=== PATIENT | female | born 2000 | race Caucasian/White ===

== ENCOUNTER 2024-01-04 07:37 | Inpatient (IN) ==
[2024-01-04] MEDS ORDERED: LIDOCAINE 1% LOCAL 20 ML VIAL INFIL PRN (07:43)
--- NOTE | 2024-01-04 07:57 | History & Physical Report ---
Date of Service January 04, 2024 Assessment & Plan (1) Encounter for induction of labor: Plan 23 y/o female currently at 39w1d with an MITZI 01/10/24 as determined by LMP, who is here for IOL. Pitocin AROM as indicated Monitor heart tracing, category 1 Admission and Anticipated Discharge Date Admission Date: January 04, 2024 History of Present Illness Primary Care Provider: NO PCP 23 y/o female currently at 39w1d with an MITZI 01/10/24 as determined by LMP, who is here for IOL. complicated by: Obesity (BMI 40 and higher @ beginning of ) Rh Negative *Rhogam at 28wks -Rhogam given 10/29/2023 - SP Low dose aspirin *Nulliparity and increase BMI GDM on insulin Had regular appointments with OB (+)Contractions (+) movement (-)Fluid loss (-)Vaginal bleeding External FHT and external uterine monitors used: Category 1 tracing OB Labs: Blood Type O Negative 06/01/23 Antibody Screen NEGATIVE 10/29/23 Hemoglobin 11.5 g/dl (12.0-16.0) L 12/17/23 Hematocrit 35.2 % (37.0-47.0) L 12/17/23 Mean Corpuscular Volume 82.4 fL (80.0-100.0) 12/17/23 Platelet Count 194 K/uL (130-400) 12/17/23 Rubella IgG Antibody Immune (Immune) 06/01/23 Rapid Plasma Reagin Nonreactive (Nonreactive) 06/01/23 Hepatitis B Surface Antigen. NON-REACTIVE (NON-REACTIVE) 06/01/23 Hepatitis C Antibody (EIA) NON-REACTIVE (NON-REACTIVE) 06/01/23 HIV (1&2) Ag and Ab Confirmation NON-REACTIVE (NON-REACTIVE) 06/01/23 Glucose 1 Hour 50 gm Load 137 mg/dl (70-130) H 07/27/23 OB Optional Labs: Chlamydia trachomatis RNA Not Detected (NotDetected) 06/01/23 Neisseria gonorrhoeae RNA Not Detected (NotDetected) 06/01/23 Thyroid Stimulating Hormone (TSH) < 0.010 uIu/ml (0.300-4.500) L 12/13/23 Labs Reviewed: Declines carrier screening--mln cfdna-low risk--mln Allergies Allergy/AdvReac Type Severity Reaction Status Date / Time sulfa Allergy Severe Anaphylaxis Uncoded 01/04/24 07:57 Home Medications Medication Instructions Recorded Confirmed Type 21-iron fu-folic acid 1 tab PO DAILY 05/28/23 01/04/24 History [ Complete] acetone (urine) test (Ketone Urine #50 ea 08/09/23 01/03/24 Rx Test strips) blood-glucose meter (OneTouch #1 ea 08/09/23 01/03/24 Rx Verio Reflect Meter) lancets 33 gauge (OneTouch Delica #150 ea 08/09/23 01/03/24 Rx Plus Lancet) pen needle, diabetic 32 gauge x #100 ea 10/10/23 01/03/24 Rx 5/32" (BD Ultra-Fine Yareli Pen Needle) blood sugar diagnostic (OneTouch #150 ea 11/23/23 01/03/24 Rx Verio test strips) aspirin 81 mg chewable tablet 81 mg PO DAILY 12/17/23 01/04/24 History insulin NPH isoph U-100 human 100 45 unit subcut QPM 12/17/23 01/04/24 History unit/mL (3 mL) subcutaneous pen (Humulin N NPH U-100 Insulin KwikPen) levothyroxine 100 mcg tablet 100 mcg PO DAILY #30 tabs 12/24/23 01/04/24 Rx Patient History Medical History History of positive PPD Vascular malformation Varicella vaccination Surgical History S/P sclerotherapy of varicose veins Family History Denies family history of Ovarian cancer Breast cancer Colorectal cancer Social History (Updated 10/09/23 @ 12:00 by Jayna Funez LPN) Smoking Status: Never smoker Do You Dip or Chew Tobacco: No; Hx Alcohol Use: No Hx Substance Use: No Preferred Language: Thai Communication Ability: Effective Technology Lead Required: No Beliefs That Will Affect Care: None marital status: marital status details: brigido Huertas (24) [phone] Current Living Situation: Spouse Current Living Situation Comment: Patient lives with fob and dogs current occupational status: employed current occupation: [employer] Feels Safe at Home: Yes Safety Concerns: Feels Safe At This Time Diet: regular Dental Care, Regularly: No Seatbelt Use: always 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 No acute distress Cardiac: Regular rate and rhythm, no murmurs appreciated Respiratory: Lungs clear to auscultation bilaterally, No increased work of breathing Abdominal: Soft, non-tender, non-distended. Bowel sounds present. Gravid uterus. Extremities: No lower extremity edema, calves non-tender bilaterally FHT: Category 1, baseline rate 140, moderate variablility Genitourinary: OB Exam Abdomen: + vertex and + estimated weight (7-8 pounds); no irregular contractions Manual OB Exam: + cervical dilation 2 cm, + cervical effacement 70% and + station -2 OB Exam Monitor Tracing: + external FHT monitor used, + external uterine monitor used, + category I and + normal FHT variability cervical balloon placed under direct visualization. 40cc sterile water were instilled into the balloon. the catheter was then placed on traction and secured to her right leg. patient tolerated procedure well. Results & Data Vital Signs (Past 12 Hours) Vital Signs Pulse BP 01/04/24 07:47 110 H 133/95 Supervising Physician Co-Signing Physician Notes Resident Physician Supervision Note: I interviewed and examined the patient. Discussed with Dr. Higgins and agree with findings and plan as documented in the note. Any exceptions or clarifications are listed here: [None] Documented By: Jacque Zuleta MD, FACOG Resident Activity Tracking Resident Involvement: Resident Care Provided Care Provided: OB Delivery
[2024-01-04 08:15] LABS: Hematocrit (blood only) 35.7 % (37.0-47.0); Hemoglobin 12.1 g/dl (12.0-16.0); Mean Corpuscular Hemoglobin 27.3 pg (25.0-34.0); Mean Corpuscular Hgb Conc 33.9 g/dL (32.0-36.0); Mean Corpuscular Volume 80.4 fL (80.0-100.0); Mean Platelet Volume 10.7 fL (9.4-12.4); Platelet Count 171 K/uL (130-400); RDW Coefficient of Variation 15.8 % (11.5-14.5); RDW Standard Deviation 46.3 fL (36.4-46.3); Red Blood Count 4.44 M/uL (4.20-5.40); White Blood Count 12.02 K/ul (4.8-10.8)
[2024-01-04] MEDS: LACTATED RINGER'S 1,000 ML IV PRN (09:31)
[2024-01-04] MEDS: OXYTOCIN 30 UNITS/NSS 30 UNITS/500 ML BAG IV PRN (09:35)
[2024-01-04] MEDS ORDERED: DEXTROSE 50% 50 ML SYRINGE IV PRN (09:51)
[2024-01-04] MEDS ORDERED: SODIUM CHLORIDE 0.9% 1,000 ML IV PRN (09:51)
[2024-01-04] MEDS: BUTORPHANOL TARTRATE 2 MG/ML VIAL IV PRN (10:11)
[2024-01-04] MEDS: DEXTROSE 5% 1,000 ML IV PRN (11:58)
[2024-01-04] MEDS: INSULIN REGULAR 250 UNITS in SODIUM CHLORIDE 0.9% 247.5 ML IV PRN (11:59)
[2024-01-04] MEDS: BUPIVACAINE 0.25% PF 30 ML VIAL ONE (14:25)
[2024-01-04] MEDS: LIDOCAINE 2%/EPINEPHRINE 1:200,000 20 ML PF ONE (14:26)
[2024-01-04] MEDS: fentANYL 2 MCG/ML BUPIVacaine 0.125%-NSS 100ML BAG ONE (14:27)
[2024-01-04] MEDS: SODIUM CHLORIDE 0.9% PF INJ 10 ML VIAL ONE (14:33)
[2024-01-04] MEDS: fentaNYL citrate PF 100 MCG/2 ML VIAL ONE (14:33)
--- NOTE | 2024-01-04 14:39 | Anesthesiology Consultation ---
Date of Service January 04, 2024 Assessment & Plan Chart Review Chart Review: Acceptable Risk for Labor Epidural Consults Requested none History Height/Weight Height: 5 ft 8 in Weight: 141.974 kg Allergies Allergy/AdvReac Type Severity Reaction Status Date / Time sulfa Allergy Severe Anaphylaxis Uncoded 01/04/24 07:57 Medications Home Medications Medication Instructions Recorded Confirmed Last Taken 21-iron fu-folic acid 1 tab PO DAILY 05/28/23 01/04/24 01/03/24 21:00 [ Complete] acetone (urine) test (Ketone Urine #50 ea 08/09/23 01/03/24 Unknown Test strips) blood-glucose meter (OneTouch #1 ea 08/09/23 01/03/24 Unknown Verio Reflect Meter) lancets 33 gauge (OneTouch Delica #150 ea 08/09/23 01/03/24 Unknown Plus Lancet) pen needle, diabetic 32 gauge x #100 ea 10/10/23 01/03/24 Unknown 32" (BD Ultra-Fine Yareli Pen Needle) blood sugar diagnostic (OneTouch #150 ea 11/23/23 01/03/24 Unknown Verio test strips) aspirin 81 mg chewable tablet 81 mg PO DAILY 12/17/23 01/04/24 01/03/24 21:00 insulin NPH isoph U-100 human 100 45 unit subcut QPM 12/17/23 01/04/24 01/03/24 21:00 unit/mL (3 mL) subcutaneous pen (Humulin N NPH U-100 Insulin KwikPen) levothyroxine 100 mcg tablet 100 mcg PO DAILY #30 tabs 12/24/23 01/04/24 01/03/24 07:00 Active Medications Generic Name Dose Route Start Last Admin Trade Name Freq PRN Reason Stop Dose Admin Butorphanol Tartrate 1 mg 01/04/24 09:48 01/04/24 12:33 Butorphanol Tartrate 2 Mg/Ml Vial IV 02/03/24 09:47 1 mg Q2H PRN Administration Pain Oxytocin 30 units in 500 mls @ 10 mls/hr 01/04/24 07:43 01/04/24 13:00 Pitocin 30 Units/Nss IV 01/06/24 07:42 0.6 units/hr .Q24H PRN 10 mls/hr Labor Induction/Augmentation Titration Protocol 0.6 UNITS/HR Lactated Ringer's 1,000 mls @ 125 mls/hr 01/04/24 07:43 01/04/24 14:00 Lr IV 01/06/24 07:42 25 mls/hr .Q8H PRN Infusion L&D Protocol Protocol Dextrose 1,000 mls @ 100 mls/hr 01/04/24 09:51 01/04/24 14:00 D5w IV 02/03/24 09:50 100 mls/hr .Q10H PRN Infusion BSG 180 or below Protocol Insulin Human Regular 250 250 mls @ 0 mls/hr 01/04/24 09:51 01/04/24 14:00 units/ Sodium Chloride IV 02/03/24 09:50 0.5 units/hr .Q0M PRN 0.5 mls/hr BSG 80mg/dL or ABOVE Titration Protocol Per Protocol Past Medical History Medical History History of positive PPD Vascular malformation Varicella vaccination Past Family History Family History Denies family history of Ovarian cancer Breast cancer Colorectal cancer Past Surgical History Surgical History S/P sclerotherapy of varicose veins Social History Smoking Status: Never smoker Do You Dip or Chew Tobacco: No Hx Alcohol Use: No Hx Substance Use: No substance use type: does not use Physical Exam Vital Signs Last Vital Signs Temp 36.8 C 01/04/24 14:24 Pulse 86 01/04/24 14:36 Resp 16 01/04/24 14:24 BP 131/75 01/04/24 14:36 Pulse Ox 97 01/04/24 14:33 Testing Laboratory Results 01/04/24 07:50 01/04/24 01/04/24 01/04/24 13:53 12:56 11:16 POC Glucose 91 94 89 01/04/24 08:57 POC Glucose 110 H
[2024-01-04] MEDS ORDERED: fentaNYL citrate PF 100 MCG/2 ML VIAL EPI PRN (14:41)
[2024-01-04] MEDS ORDERED: BUPIVACAINE 0.25% PF 30 ML VIAL EPI PRN (14:41)
[2024-01-04] MEDS ORDERED: ROPIVACAINE 0.5% PF 5 MG/ML 20 ML VIAL EPI PRN (14:41)
[2024-01-04] MEDS ORDERED: diphenhydrAMINE 50 MG/ML VIAL IV PRN (14:41)
[2024-01-04] MEDS ORDERED: NALOXONE HCL 0.4 MG/1 ML VIAL/CARP IV PRN (14:41)
[2024-01-04] MEDS ORDERED: NALBUPHINE HCL 5 MG in SYRINGE 0 ML IV PRN (14:41)
[2024-01-04] MEDS ORDERED: NALOXONE HCL 1 MG in SODIUM CHLORIDE 0.9% 1,000 ML IV PRN (14:41)
[2024-01-04] MEDS ORDERED: SODIUM CHLORIDE 0.9% PF INJ 10 ML VIAL EPI PRN (14:41)
[2024-01-04] MEDS ORDERED: LIDOCAINE 2% MPF LOCAL 5 ML VIAL EPI PRN (14:41)
[2024-01-04] MEDS ORDERED: ePHEDrine sulfate 50 MG/ML AMP IV PRN (14:41)
[2024-01-04] MEDS: BUPIVACAINE 0.25% PF 30 ML VIAL EPI STA (14:52)
[2024-01-04] MEDS: fentaNYL citrate PF 100 MCG/2 ML VIAL EPI STA (14:53)
[2024-01-04] MEDS: SODIUM CHLORIDE 0.9% PF INJ 10 ML VIAL EPI STA (14:54)
[2024-01-04] MEDS: LIDOCAINE 2%/EPINEPHRINE 1:200,000 20 ML PF EPI STA (14:54)
[2024-01-04] MEDS ORDERED: INSULIN REGULAR 250 UNITS in SODIUM CHLORIDE 0.9% 247.5 ML IV PRN (15:10)
--- NOTE | 2024-01-04 19:31 | Labor Progress Brief Note ---
Date of Service January 04, 2024 Known large baby with diabetes on insulin patient is being induced she is gone from 2 cm to 4 may be slightly more than 4 there is some molding palpated -2 station contractions every 2 minutes heart rate is reassuring I discussed with the patient there is some concern for a large fetus I discussed at length how we could continue to induce labor versus risks of a prolonged labor induction discussed the options of discussed what is involved with the we will check her again in 1 hour and make decisions patient seems comfortable with the approach of either or continuing labor she is aware the baby is big section. The patient was counseled to the nature of the procedure including alternatives such as labor. Risks were discussed including bleeding infection injury to bowel bladder ureter vessels and even baby. Deep Vein thrombosis, pulmonary embolus discussed. Breakdown of incision reviewed. Deep vein thrombosis pulmonary embolus hernia and failure of the incision to heal were discussed Patient verbalized understanding of this and was given ample time to ask questions Assessment & Plan Admission and Anticipated Discharge Date Admission Date: January 04, 2024 Results & Data Vital Signs (Past 12 Hours) Vital Signs Temp Pulse Resp BP Pulse Ox 01/04/24 19:23 100 01/04/24 19:23 73 01/04/24 19:23 72 142/84 H 01/04/24 19:18 63 100 01/04/24 19:13 68 100 01/04/24 19:08 72 100 01/04/24 19:07 72 133/66 01/04/24 19:03 83 100 01/04/24 18:58 66 100 01/04/24 18:53 73 100 01/04/24 18:52 68 146/85 H 01/04/24 18:48 67 100 01/04/24 18:43 67 100 01/04/24 18:38 67 100 01/04/24 18:37 68 141/89 H 01/04/24 18:33 70 100 01/04/24 18:28 82 100 01/04/24 18:23 71 100 01/04/24 18:22 66 140/83 01/04/24 18:18 68 100 01/04/24 18:13 61 100 01/04/24 18:08 98.1 F 64 16 100 01/04/24 18:07 76 133/80 01/04/24 18:03 64 99 01/04/24 17:58 65 100 01/04/24 17:53 100 01/04/24 17:53 70 01/04/24 17:53 68 136/78 01/04/24 17:48 62 100 01/04/24 17:43 69 100 01/04/24 17:38 73 100 01/04/24 17:37 62 136/78 01/04/24 17:33 65 100 01/04/24 17:31 69 90 01/04/24 17:28 57 L 100 01/04/24 17:23 64 100 01/04/24 17:22 66 125/76 01/04/24 17:18 63 100 01/04/24 17:13 58 L 100 01/04/24 17:08 65 131/75 100 01/04/24 17:05 16 01/04/24 17:05 97.3 F L 16 01/04/24 17:03 62 100 01/04/24 16:58 63 100 01/04/24 16:53 60 100 01/04/24 16:52 57 L 138/74 01/04/24 16:48 59 L 100 01/04/24 16:43 63 100 01/04/24 16:38 100 01/04/24 16:38 65 01/04/24 16:38 61 133/74 01/04/24 16:33 62 100 01/04/24 16:28 65 100 01/04/24 16:23 65 99 01/04/24 16:22 63 142/68 H 01/04/24 16:18 59 L 100 01/04/24 16:13 69 100 01/04/24 16:08 66 100 01/04/24 16:07 73 128/68 01/04/24 16:05 16 01/04/24 16:05 97.7 F 16 01/04/24 16:03 66 100 01/04/24 15:58 84 99 01/04/24 15:53 68 100 01/04/24 15:52 63 129/70 01/04/24 15:48 68 100 01/04/24 15:43 80 99 01/04/24 15:38 100 01/04/24 15:38 66 01/04/24 15:38 64 129/70 01/04/24 15:33 71 98 01/04/24 15:28 74 100 01/04/24 15:23 69 127/72 100 01/04/24 15:18 69 99 01/04/24 15:13 69 100 01/04/24 15:08 70 99 01/04/24 15:07 60 128/69 01/04/24 15:03 73 99 01/04/24 14:58 66 100 01/04/24 14:53 71 99 01/04/24 14:52 70 126/68 01/04/24 14:48 75 99 01/04/24 14:43 84 98 01/04/24 14:38 75 96 01/04/24 14:36 86 131/75 01/04/24 14:34 80 132/75 01/04/24 14:33 79 97 01/04/24 14:32 85 126/79 01/04/24 14:30 74 125/72 01/04/24 14:29 80 93/51 L 01/04/24 14:28 67 91/48 L 98 01/04/24 14:25 76 108/55 L 01/04/24 14:24 16 01/04/24 14:24 98.2 F 86 16 125/70 01/04/24 14:23 90 100 01/04/24 14:22 93 H 142/89 H 01/04/24 14:18 82 98 01/04/24 14:14 81 90 01/04/24 14:13 81 100 01/04/24 14:08 84 100 01/04/24 14:03 86 100 01/04/24 13:58 72 100 01/04/24 13:53 75 100 01/04/24 13:48 74 100 01/04/24 13:43 78 100 01/04/24 13:38 72 100 01/04/24 13:24 77 100 01/04/24 13:19 69 100 01/04/24 13:14 73 141/92 H 99 01/04/24 13:09 71 95 01/04/24 13:04 73 98 01/04/24 12:59 70 95 01/04/24 12:55 67 142/86 H 01/04/24 12:54 72 97 01/04/24 12:50 74 94 01/04/24 12:49 69 96 01/04/24 12:44 70 97 01/04/24 12:39 69 96 04/05/24 12:38 72 94 01/04/24 12:34 68 100 01/04/24 12:29 75 100 01/04/24 12:25 67 144/93 H 01/04/24 12:24 75 100 01/04/24 12:19 64 100 01/04/24 12:16 69 167/95 H 01/04/24 12:14 71 100 01/04/24 12:09 69 100 01/04/24 12:04 72 99 01/04/24 11:59 71 100 01/04/24 11:54 71 99 01/04/24 11:49 66 100 01/04/24 11:44 69 100 01/04/24 11:39 66 100 01/04/24 11:34 69 100 01/04/24 11:29 70 100 01/04/24 11:24 67 100 01/04/24 11:19 67 100 01/04/24 11:14 67 99 01/04/24 11:11 65 144/90 H 01/04/24 11:09 71 100 01/04/24 11:04 72 99 01/04/24 10:59 73 99 01/04/24 10:54 77 98 01/04/24 10:49 73 97 01/04/24 10:44 67 94 01/04/24 10:43 71 93 01/04/24 10:39 70 95 01/04/24 10:36 73 93 01/04/24 10:34 76 94 05 10:31 79 93 05 10:29 82 95 05 10:25 75 94 05 10:24 76 96 05 10:19 83 95 01/04/24 10:18 85 93 01/04/24 10:14 76 99 05 10:13 79 139/91 05 09:37 89 142/79 H 01/04/24 08:33 93 H 139/74 [id number] 08:00 98.6 F 110 H 18 133/95 040524 07:47 98.6 F 110 H 18 133/95 Coding Level of Care Code None
[2024-01-04] MEDS ORDERED: SODIUM CHLORIDE 0.9% 250 ML IV PRN (20:01)
[2024-01-04] MEDS: ONDANSETRON INJ 2 MG/ML 2 ML VIAL IV PRN (21:28)
[2024-01-04] MEDS: fentANYL 2 MCG/ML BUPIVacaine 0.125%-NSS 100ML BAG EPI PRN (22:42)
[2024-01-05] MEDS: CALCIUM CARBONATE 500 MG CHEWABLE TAB PO PRN ×2 (00:23→23:23)
[2024-01-05] MEDS: OXYTOCIN 30 UNITS/NSS 30 UNITS/500 ML BAG IV PRN (05:59)
--- NOTE | 2024-01-05 06:00 | Delivery Summary ---
Supervising Physician Co-Signing Physician Notes Induction of labor at 39 weeks for gestational diabetes on insulin and suspected large for gestational age Pitocin and Duran and her cervix placed her contractions improved she received an epidural artificial rupture of membranes her cervix then did still out of 4 cm however after that it took off nicely and started dilating all the way to fully dilated she pushed approximately 2 hours delivered a baby in occiput anterior position. Once the head was delivered there was clear fluid no nuchal cord gentle traction on the baby with no excessive force easy delivery live vigorous female cord clamped and cut cord gases obtained cord blood obtained placenta removed with traction IV Pitocin started uterine tone good second-degree tear repaired with 3-0 Vicryl sponge and instrument counts correct quantitative blood loss was 180 mL Vaginal Delivery Summary Date of Service January 05, 2024 Vaginal Delivery Summary and 2nd Degree LAC [facility] Vaginal Delivery Charge Delivery Type Details: and 2nd Degree LAC
[2024-01-05] MEDS ORDERED: HYDROCORTISONE ACETATE 25 MG SUPP PR PRN (06:07)
[2024-01-05] MEDS ORDERED: BENZOCAINE 20% SPRY 85 APPLN/85 GM CAN EXT PRN (06:07)
[2024-01-05] MEDS ORDERED: OXYTOCIN 30 UNITS/NSS 30 UNITS/500 ML BAG IV PRN (06:07)
[2024-01-05] MEDS ORDERED: ACETAMINOPHEN 325 MG TAB PO PRN (06:07)
[2024-01-05] MEDS ORDERED: bisacodyL 10 MG SUPP PR PRN (06:07)
[2024-01-05] MEDS: ePHEDrine sulfate 50 MG/ML AMP ONE (06:28)
[2024-01-05] MEDS ORDERED: LEVOTHYROXINE SODIUM 100 MCG TABLET PO SCH (06:30)
[2024-01-05 07:08] LABS: Base Excess Cord Arterial Bld -3.3 mEq/L (-9-1.8); CO2 Cord Arterial Blood 40 mmHg (39.1-73.5); HCO3 Cord Arterial Blood 22 mmol/L (19.7-28.5); Oxygen Sat Cord Arterial Blood 70.6 % (<60); PO2 Cord Arterial Blood 37 mmHg (4.1-31.7); pH Cord Arterial Blood 7.35 (7.1-7.38)
[2024-01-05 07:09] LABS: Base Excess Cord Venous Blood -4.8 mEq/L (-7.7-1.9); Cord Venous Blood HCO3 23 mmol/L (18.4-26.8); Cord Venous Blood PCO2 53 mmHg (30.4-57.2); Cord Venous Blood PO2 20 mmHg (14.1-43.3); Cord Venous Blood pH 7.25 (7.20-7.44); O2 Saturation Cord Venous Bld < 60.0 % (<68)
[2024-01-05] MEDS ORDERED: Nursing to Pharmacy Communication SCH (07:30)
[2024-01-05] MEDS: IBUPROFEN 600 MG TAB PO PRN (07:54)
[2024-01-05] MEDS: LEVOTHYROXINE SODIUM 100 MCG TABLET PO SCH (07:54)
[2024-01-05] MEDS: DIPHTHER/TETAN/PERTUS Vaccine (Tdap, Adol/Adult) 0.5mL IM ONE (07:56)
[2024-01-05] MEDS: DOCUSATE SODIUM 100 MG CAP PO SCH (07:58)
[2024-01-05] MEDS: PRENATAL VITAMIN 1 TAB PO SCH (07:58)
--- NOTE | 2024-01-05 08:07 | Anesthesia Procedure Note ---
Date of Service January 05, 2024 Anesthesia Post Epidural Note Vital Signs Vital Signs: Temp Pulse Resp BP Pulse Ox 37 C 90 20 142/69 H 89 L 01/05/24 07:28 01/05/24 07:52 01/05/24 08:00 01/05/24 07:52 01/05/24 05:51 Notes Mental Status: alert / awake / arousable and participated in evaluation Nausea / Vomiting: adequately controlled Pain: adequately controlled Airway Patency, RR, SpO2: stable & adequate BP & HR: stable & adequate Hydration State: stable & adequate Neuraxial Anesthesia: was administered and sensory block resolved Anesthetic Complications: no major complications apparent and Pt Satisfied with anesthetic care Epidural: Removed without complications and With tip intact
[2024-01-06 09:05] LABS: Hematocrit (blood only) 32.5 % (37.0-47.0); Hemoglobin 10.4 g/dl (12.0-16.0); Mean Corpuscular Hemoglobin 26.9 pg (25.0-34.0); Mean Platelet Volume 10.7 fL (9.4-12.4); Platelet Count 167 K/uL (130-400); RDW Coefficient of Variation 16.3 % (11.5-14.5); RDW Standard Deviation 49.6 fL (36.4-46.3); Red Blood Count 3.87 M/uL (4.20-5.40); White Blood Count 12.27 K/ul (4.8-10.8)
--- NOTE | 2024-01-06 09:06 | Obstetrical Progress Note ---
Date of Service January 06, 2024 Assessment & Plan (1) Encounter for care and examination after delivery: satisfactory exam continue current care plan will receive Rhogam today Subjective Ambulation: ambulating normally Voiding: no voiding problems Passing Gas:: Yes Diet Tolerance:: regular diet Lochia:: Small Feeding Type:: breast feeding doing well this morning- minimal cramping Review of Systems All systems reviewed & are unremarkable except as noted in HPI & below Physical Exam Constitutional WD/WN, vitals as above Psychiatric A+Ox3, euthymic affect Genitourinary OB Exam Abdomen: + fundal height Fundus: + firm and + relation to umbilicus (2 below) Results & Data Vital Signs (Past 12 Hours) Vital Signs Temp Pulse Resp BP Pulse Ox O2 Del Method 01/06/24 02:51 97.9 F 76 20 146/84 H 98 Room Air 01/05/24 23:03 98.1 F 90 18 127/85 96 Room Air
[2024-01-06] MEDS ORDERED: bisacodyL 5 MG TABEC PO SCH (20:00)
== END 2024-01-06 16:15 | disposition home or self-care (01) | DRG 807 ==
LOC: 4S1 07:37 → 4E2 01-05 09:38